=== PATIENT | female | born 1955 ===

== ENCOUNTER 2017-10-27 11:39 | Emergency (ER) | payer BC, MEDICARE ==
[2017-10-27] MEDS ORDERED: diphenhydrAMINE 50 MG/ML 1 ML VIAL IVP STA (12:08)
[2017-10-27] MEDS ORDERED: METOCLOPRAMIDE 5 MG/ML 2 ML VIAL IVP STA (12:08)
[2017-10-27] MEDS ORDERED: SODIUM CHLORIDE 0.9% 500 ML IV ONE (12:09)
[2017-10-27 12:37] LABS: Basophils # (A) 0.1 k/uL (0-0.2); Basophils % (A) 1 %; Eosinophils # (A) 0.1 k/uL (0-0.7); Eosinophils % (A) 2 %; HCT 39.3 % (34.0-46.0); HGB 12.8 gm/dL (11.4-16.0); Lymphocytes # (A) 1.8 k/uL (1.0-4.8); Lymphocytes % (A) 25 %; MCH 30.7 pg (25.0-35.0); MCHC 32.6 g/dL (31.0-37.0); Mean Platelet Volume 8.4; Monocytes # (A) 0.3 k/uL (0-1.0); Monocytes % (A) 5 %; Neutrophils # (A) 4.7 k/uL (1.3-7.7); Neutrophils % (A) 66 %; Platelet Count 208 k/uL (150-450); RBC 4.18 m/uL (3.80-5.40); RDW 14.2 % (11.5-15.5); WBC 7.1 k/uL (3.8-10.6)
--- NOTE | 2017-10-27 12:39 | ED ---
Headache HPI - General Chief Complaint: Headache Stated Complaint: HEADACHE Time Seen by Provider: 10/27/17 11:47 Source: patient, family, RN notes reviewed Mode of arrival: ambulatory Limitations: no limitations - History of Present Illness Initial Comments: This a 62-year-old female presents emergency Department chief complaint headache. She states she has right-sided headache for last 1 month or possibly longer. She states that she saw her insurance attorney who thought it initially was causing her blood pressures blood pressure was elevated. She states that her blood medications were switched from her blood pressure has been better but she still persists with a headache. She states the headache worsened today she went to urgent care who sent her here for further evaluation. She denies any associated nausea, vomiting, fever, chills, weakness, chest pain or shortness breath. Patient states that she has right-sided head, neck pain. Denies any trauma. She states that she just felt like she slept on it wrong today. Patient states that she's tried some [id number] medications no relief of her symptoms. Patient recently was any arise for urinary tract infection. Patient does have a history of a liver transplant at [facility] secondary to call his him. Patient states that she's been sober drug-free. - Related Data Home Medications Medication Instructions Recorded Confirmed Metoprolol Tartrate [Lopressor] 75 mg PO BID 10/27/17 10/27/17 Omeprazole [Omeprazole] 40 mg PO AC-BID 10/27/17 10/27/17 Tacrolimus [Prograf] 2 mg PO BID 10/27/17 10/27/17 amLODIPine [Norvasc] 2.5 mg PO DAILY 10/27/17 10/27/17 Allergies Allergy/AdvReac Type Severity Reaction Status Date / Time adhesive Allergy Rash/Hives Verified 10/27/17 12:02 lisinopril Allergy Unknown Verified 10/27/17 12:02 Review of Systems ROS Statement: Those systems with pertinent positive or pertinent negative responses have been documented in the HPI. ROS Other: All systems not noted in ROS Statement are negative. Past Medical History Past Medical History: GERD/Reflux, Hypertension Additional Past Medical History / Comment(s): alcoholism History of Any Multi-Drug Resistant Organisms: None Reported Additional Past Surgical History / Comment(s): liver transplant, duct surgery Past Psychological History: No Psychological Hx Reported Smoking Status: Never smoker Past Alcohol Use History: None Reported Past Drug Use History: None Reported General Exam Limitations: no limitations General appearance: alert, in no apparent distress Head exam: Present: atraumatic, normocephalic, normal inspection Eye exam: Present: normal appearance, PERRL, EOMI. Absent: scleral icterus, conjunctival injection, periorbital swelling ENT exam: Present: normal exam, normal oropharynx, mucous membranes moist, TM's normal bilaterally, normal external ear exam Neck exam: Present: normal inspection, full ROM. Absent: tenderness, meningismus, lymphadenopathy Respiratory exam: Present: normal lung sounds bilaterally. Absent: respiratory distress, wheezes, rales, rhonchi, stridor Cardiovascular Exam: Present: regular rate, normal rhythm, normal heart sounds. Absent: systolic murmur, diastolic murmur, rubs, gallop, clicks Extremities exam: Present: normal inspection, full ROM, normal capillary refill. Absent: tenderness, pedal edema, joint swelling, calf tenderness Neurological exam: Present: alert, oriented X3, CN II-XII intact, normal gait, reflexes normal, other (Finger to nose intact bilaterally without overshooting.) . Absent: motor sensory deficit Skin exam: Present: warm, dry, intact, normal color. Absent: rash Course Vital Signs 10/27/17 11:43 Temperature 98.1 F Pulse Rate 73 Respiratory 20 Rate Blood Pressure 145/67 O2 Sat by Pulse 100 Oximetry Medical Decision Making - Medical Decision Making 62-year-old female presented emergency department for headache. Patient's headache has been ongoing for over one month. Patient has seen other physicians for this. Patient CT shows degenerative changes of her cervical spine possibly leading to her problems. Patient be referred to neurology. Patient lab reviewed no acute abnormalities - Lab Data Result diagrams: 10/27/17 12:23 10/27/17 12:23 Lab Results 10/27/17 10/27/17 10/27/17 Range/Units 12:23 12:23 13:55 WBC 7.1 (3.8-10.6) k/uL RBC 4.18 (3.80-5.40) m/uL Hgb 12.8 (11.4-16.0) gm/dL Hct 39.3 (34.0-46.0) % MCV 94.0 (80.0-100.0) fL MCH 30.7 (25.0-35.0) pg MCHC 32.6 (31.0-37.0) g/dL RDW 14.2 (11.5-15.5) % Plt Count 208 (150-450) k/uL Neutrophils % 66 % Lymphocytes % 25 % Monocytes % 5 % Eosinophils % 2 % Basophils % 1 % Neutrophils # 4.7 (1.3-7.7) k/uL Lymphocytes # 1.8 (1.0-4.8) k/uL Monocytes # 0.3 (0-1.0) k/uL Eosinophils # 0.1 (0-0.7) k/uL Basophils # 0.1 (0-0.2) k/uL Sodium 138 (137-145) mmol/L Potassium 4.5 (3.5-5.1) mmol/L Chloride 104 (98-107) mmol/L Carbon Dioxide 24 (22-30) mmol/L Anion Gap 10 mmol/L BUN 22 H (7-17) mg/dL Creatinine 1.01 (0.52-1.04) mg/dL Est GFR (MDRD) Af Amer >60 (>60 ml/min/1.73 sqM) Est GFR (MDRD) Non-Af 56 (>60 ml/min/1.73 sqM) Glucose 106 H (74-99) mg/dL Calcium 8.9 (8.4-10.2) mg/dL Total Bilirubin 0.9 (0.2-1.3) mg/dL AST 27 (14-36) U/L ALT 33 (9-52) U/L Alkaline Phosphatase 102 (38-126) U/L Total Protein 6.9 (6.3-8.2) g/dL Albumin 3.8 (3.5-5.0) g/dL Urine Color Light Yellow Urine Appearance Clear (Clear) Urine pH 6.0 (5.0-8.0) Ur Specific [place] 1.008 (1.001-1.035) Urine Protein Negative (Negative) Urine Glucose (UA) Negative (Negative) Urine Ketones Negative (Negative) Urine Blood Negative (Negative) Urine Nitrite Negative (Negative) Urine Bilirubin Negative (Negative) Urine Urobilinogen <2.0 (<2.0) mg/dL Ur Leukocyte Esterase Small H (Negative) Urine WBC 5 (0-5) /hpf Ur Squamous Epith Cells <1 (0-4) /hpf Urine Bacteria Rare H (None) /hpf Urine Mucus Rare H (None) /hpf Disposition Clinical Impression: Headache, Degenerative disc disease, cervical Disposition: HOME SELF-CARE Condition: Stable Instructions: Acute Headache (ED) Additional Instructions: Please return to the Emergency Department if symptoms worsen or any other concerns. Referrals: Christoph Garcia MD [Primary Care Provider] - 1-2 days Kimber Mills MD [STAFF PHYSICIAN] - 1-2 days Time of Disposition: 14:17
[2017-10-27 12:46] LABS: ALT 33 U/L (9-52); AST 27 U/L (14-36); Albumin 3.8 g/dL (3.5-5.0); Alkaline Phosphatase 102 U/L (38-126); Anion Gap 10 mmol/L; Blood Urea Nitrogen 22 mg/dL (7-17); Calcium 8.9 mg/dL (8.4-10.2); Carbon Dioxide 24 mmol/L (22-30); Chloride 104 mmol/L (98-107); Glucose 106 mg/dL (74-99); Potassium 4.5 mmol/L (3.5-5.1); Sodium 138 mmol/L (137-145); Total Bilirubin 0.9 mg/dL (0.2-1.3); Total Protein 6.9 g/dL (6.3-8.2)
--- NOTE | 2017-10-27 13:40 | CT ---
EXAMINATION TYPE: CT brain vielka evans con DATE OF EXAM: 10/27/2017 COMPARISON: NONE HISTORY: Head and neck pain. CT DLP: 1752 mGycm. Automated Exposure Control for Dose Reduction was Utilized. TECHNIQUE: CT scan of the head and cervical spine are performed without contrast. FINDINGS: There is no acute intracranial hemorrhage or midline shift identified. There is ventricul ar and sulcal prominence. There is low-attenuation in the periventricular white matter. There is air -fluid level in left maxillary sinus otherwise visualized sinuses are clear. The globes are intact bi laterally. Right lens is not well seen. Coronal images show levoconvex scoliosis centered in the upper thoracic spine. Cervical spine is visu alized in its entirety from C1 through upper thoracic levels and demonstrates straightened alignment on sagittal images without evidence of acute fracture or dislocation. There is grade 1 retrolisthesis of C5 on C6 and grade 1 anterolisthesis of C7 on T1. Prevertebral soft tissue appears within normal limits. The C1-C2 articulation is within normal limits on the coronal images. Vertebral body heights are maintained. There is mild disc space narrowing and spurring C4-C5 level. T here is moderate disc space narrowing and mild to moderate spurring C5-C6 level. There is some ossifi c fusion with advanced disc space narrowing C6-C7 level. No large posterior disc herniations are pres ent on sagittal images. Review of axial images show some right-sided spur disc complex C5-C6 level effacing anterolateral the mahamed sac and causing moderate to advanced right-sided neural foraminal narrowing on axial image 47. Th yroid gland is felt within normal limits. Visualized lung apices are clear. IMPRESSION: 1. There is no acute fracture or dislocation evident in the cervical spine. Loss of normal cervical c urvature with multilevel degenerative changes as detailed above. 2. No acute intracranial hemorrhage or midline shift is seen. There is mild diffuse cerebral atrophy and chronic small vessel ischemic change noted. Acute left maxillary sinus disease is appreciated.
[2017-10-27 14:04] LABS: Appearance,Urine Clear (Clear); Bacteria,Urine Rare /hpf; Bilirubin,Urine Negative (Negative); Blood,Urine Negative (Negative); Color,Urine Light Yellow; Glucose,Urine (UA) Negative (Negative); Ketones,Urine Negative (Negative); Leukocyte Esterase,Urine Small (Negative); Mucus,Urine Rare /hpf; Nitrite,Urine Negative (Negative); Protein,Urine Negative (Negative); Specific Gravity,Urine 1.008 (1.001-1.035); Squamous Epithelial Cell,Urine <1 /hpf (0-4); Urobilinogen,Urine <2.0 mg/dL (<2.0); WBC,Urine 5 /hpf (0-5)
[2017-10-27 14:33] VITALS: BP 150/79; PULSE 55; RESP 16; TEMP 96.9
== END 2017-10-27 14:33 | disposition home or self-care (01) ==
LOC: EC 11:39
DX: R51 Headache (principal); M50.30 Other cervical disc degeneration, unspecified cervical region; I10 Essential (primary) hypertension; K21.9 Gastro-esophageal reflux disease without esophagitis; Z88.8 Allergy status to other drugs, medicaments and biological substances; Z91.048 Other nonmedicinal substance allergy status; Z79.899 Other long term (current) drug therapy
CPT/HCPCS: 99284; 96374; 96375; 96361; 36415; 80053; 85025; 81001; 72125; 70450; J1200; J2765